=== PATIENT | female | born 1950 | race Caucasian/White ===

== ENCOUNTER → 2018-09-11 | Outpatient (CLI) | payer MEDICARE, OTHER ==
--- NOTE | 2018-09-12 11:59 | CRLMY ---
INDICATION: bilateral screening mammogram asymptomatic 67 year old been obtained using full-field digital technique. These mammographic images were interpreted with the benefit of computer-aided detection. COMPARISON FILM: 09/10/17, 08/18/16, 08/10/15, 07/16/14. FINDINGS: The breast tissue is heterogeneously dense, which could obscure detection of small masses. There are no masses or calcifications that are suspicious for malignancy. IMPRESSION: There is no radiographic evidence for malignancy. ASSESSMENT: BI-RADS Category 1: Negative RECOMMENDATION: Routine screening mammogram in 1 year. A lay language report of this examination will be provided to the patient. Breast Tomosynthesis was used in this interpretation. [email or web address] Dictated by: Rudolph Roth MD @ 09/12/2018 11:57:33 (Electronically Signed)
== END ==
LOC: JP.MAM 12:31
PROVIDERS: ATTEND Physician Assistant
DX: Z12.31 Encounter for screening mammogram for malignant neoplasm of breast (principal)
CPT/HCPCS: 77063; 77067

== ENCOUNTER 2023-04-05 15:55 | Emergency (ER) | payer MEDICARE, OTHER ==
[2023-04-05] MEDS ORDERED: Sodium Chloride 0.9% 10 ML Syringe FLUSH PRN (16:29)
[2023-04-05] MEDS ORDERED: Sodium Chloride 0.9% 500 ML IV ONE ×2 (16:37→17:43)
[2023-04-05] MEDS ORDERED: Doxycycline 100 MG in Sodium Chloride 0.9% 100 ML IV ONE (16:49)
[2023-04-05 16:55] LABS: BASOPHILS PERCENT AUTO 0.2 % (0.1-1.3); EOSINOPHILS PERCENT AUTO 0.1 % (0.0-5.4); HEMATOCRIT 37.9 % (34.3-46.0); HEMOGLOBIN 13.4 g/dL (11.2-15.5); IMMATURE GRAN ABSOLUTE AUTO 0.07 K/uL (0.00-0.23); IMMATURE GRAN PERCENT AUTO 0.5 % (0.0-0.7); LYMPHOCYTES ABSOLUTE AUTO 0.83 K/uL (0.8-3.3); LYMPHOCYTES PERCENT AUTO 6.4 % (11.4-47.7); MEAN CORPUSCULAR HGB CONC 35.4 g/dL (31.6-35.5); MEAN CORPUSCULAR VOLUME 87.7 fL (81.4-99.0); MONOCYTES ABSOLUTE AUTO 1.11 K/uL (0.20-0.90); MONOCYTES PERCENT AUTO 8.6 % (3.3-12.6); NEUTROPHILS ABSOLUTE AUTO 10.83 K/uL (1.0-7.6); NEUTROPHILS PERCENT AUTO 84.2 % (40.0-78.1); PLATELET COUNT,PLT 340 K/uL (130-375); RED BLOOD CELL COUNT 4.32 M/uL (3.77-5.24); WHITE BLOOD CELL COUNT,WBC 12.9 K/uL (3.2-11.0)
[2023-04-05 17:00] LABS: BASOPHILS ABSOLUTE AUTO 0.02 K/uL (0.00-0.10); EOSINOPHILS ABSOLUTE AUTO 0.01 K/uL (0.00-0.40)
[2023-04-05] MEDS ORDERED: cefTRIAXone 2 GM in Sodium Chloride 0.9% 50 ML IV SCH (17:00)
[2023-04-05 17:05] LABS: BASE EXCESS VENOUS -10.1 mm/L; BICARBONATE,VENOUS 15.5 mmol/L; CARBOXYHEMOGLOBIN 1.2 % (0.0-1.6); METHEMOGLOBIN 0.5 %; O2 SATURATION VENOUS 26.6; OXYHEMOGLOBIN 26.1 %; PCO2 VENOUS 34.5 mm/Hg; PH,VENOUS 7.276 (7.350-7.450); TOTAL HEMOGLOBIN 14.5 g/dL (12.0-16.0)
[2023-04-05 17:38] LABS: A/G RATIO 0.4 (1.2-2.2); ALANINE AMINOTRANSFERASE,ALT 15 U/L (12-78); ALBUMIN 2.5 g/dL (3.4-5.0); ALKALINE PHOSPHATASE 81 U/L (46-116); ASPARTATE AMNIOTRANSFERASE,AST 31 U/L (15-37); BILIRUBIN TOTAL 0.9 mg/dL (0.2-1.0); BLOOD UREA NITROGEN,BUN 28 mg/dL (7-18); CALCIUM 9.5 mg/dL (8.5-10.1); CARBON DIOXIDE,CO2 17 mmol/L (21-32); CHLORIDE,CL 105 mmol/L (100-108); CREATININE 1.2 mg/dL (0.6-1.0); EST CRCL DRUG DOSING (CG) 39.41 mL/min; ESTIMATED GFR 48 mL/min (>60); GLUCOSE RANDOM 118 mg/dL (74-106); POTASSIUM,K 3.1 mmol/L (3.6-5.2); PROTEIN TOTAL,TP 8.5 g/dL (6.4-8.2); SODIUM,NA 138 mmol/L (140-148)
[2023-04-05 17:41] LABS: ANION GAP 19.1 mmol/L (5.0-14.0)
[2023-04-05 17:42] LABS: LACTIC ACID 2.7 mmol/L (0.4-2.0)
[2023-04-05] MEDS ORDERED: Potassium Chloride 20 MEQ Tab.ER PO ONE (17:43)
[2023-04-05] MEDS ORDERED: Sodium Chloride 0.9% 1,000 ML IV ONE (17:45)
[2023-04-05 17:48] LABS: C-REACTIVE PROTEIN 23.68 mg/dL (<0.50)
[2023-04-05] MEDS ORDERED: Potassium Chloride 20 MEQ Tab.ER ONE (17:54)
[2023-04-05] MEDS ORDERED: Sodium Chloride 0.9% 100 ML IV SCH (18:30)
[2023-04-05] MEDS ORDERED: Iopamidol 755 Mg/ML 100 ML Bottle IV SCH (18:30)
== END 2023-04-06 01:35 ==
LOC: JP.ED 15:55
DX: E86.0 Dehydration (principal); E87.6 Hypokalemia; E87.20 Acidosis, unspecified; R09.02 Hypoxemia; J90 Pleural effusion, not elsewhere classified; Z79.82 Long term (current) use of aspirin
CPT/HCPCS: 36415; 71250; 71275; 80053; 82803; 83605; 83615; 83735; 83880; 84145; 84443; 84484; 85025; 85379; 86140; 87040; 93005; A9270; J0696; J3490; J7030; J7040; Q9967; 93010; 99285

== ENCOUNTER 2024-02-07 06:57 | Day surgery (SDC) | payer MEDICARE ==
[~2024-02-07 06:57] MED LIST: Propofol 200 MG/20 ML SDV ONE
[2024-02-07] MEDS ORDERED: fentaNYL 50 MCG/ML SDV ONE (06:58)
[2024-02-07] MEDS ORDERED: Atropine 0.4 MG/ML SDV ONE (08:15)
[2024-02-07] MEDS ORDERED: Propofol 200 MG/20 ML SDV ONE (08:16)
[2024-02-07] MEDS: Lactated Ringers 1,000 ML IV SCH (09:09)
== END 2024-02-07 09:35 | disposition home or self-care (01) ==
LOC: JP.SDS 06:57
PROVIDERS: ATTEND Surgery
DX: K57.30 Diverticulosis of large intestine without perforation or abscess without bleeding (principal); I10 Essential (primary) hypertension; F32.A Depression, unspecified; Z88.8 Allergy status to other drugs, medicaments and biological substances; R19.5 Other fecal abnormalities
CPT/HCPCS: 45378; J0461; J2704; J3010; J7120; 00811-QZ